=== PATIENT | female | born 1950 | race Two or more races ===

== ENCOUNTER 2024-03-02 02:15 | Inpatient (IN) | payer OTHER ==
[~2024-03-02] VITALS: Ht 157.5 cm; Wt 80.0 kg
--- NOTE | 2024-03-02 03:25 | ED.PDOC ---
History of Present Illness HPI Comments 73 year old female brought in by EMS presents to the ED with a chief complaint of generalized weakness onset yesterday. Per EMS, patient is normally on 1L of O2 at home, daughter changed it to 3L and O2 sat was 91%. Upon EMS arrival O2 sat was 97%, in route to ED O2 sat was 91% and upon ED arrival she was placed on 4L and current O2 sat is 98%. Patient had also been experiencing shortness of breath and cough for the past few days. No other symptoms or modifying factors present at this time. 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 Family History Family History: Unknown Social History Smoker: Non-Smoker Alcohol: Denies ETOH Use Drugs: Denies Drug Use Lives In: Home Constitutional: reports: weakness; denies: chills, diaphoresis, fatigue, fever, malaise, sweats, others EENTM: denies: blurred vision, double vision, ear bleeding, ear discharge, ear drainage, ear pain, ear ringing, eye pain, eye redness, hearing loss, mouth pain, mouth swelling, nasal discharge, nose bleeding, nose congestion, nose pain, photophobia, tearing, throat pain, throat swelling, voice changes, others Respiratory: reports: cough, shortness of breath; denies: hemoptysis, orthopnea, SOB at rest, SOB with excertion, stridor, wheezing, others Cardiovascular: denies: chest pain, dizzy spells, diaphoresis, Dyspnea on exertion, edema, irregular heart beat, left arm pain, lightheadedness, palpitations, PND, syncope, others Gastrointestinal: denies: abdomen distended, abdominal pain, blood streaked bowels, constipated, diarrhea, dysphagia, difficulty swallowing, hematemesis, melena, nausea, poor appetite, poor fluid intake, rectal bleeding, rectal pain, vomiting, others Genitourinary: denies: abnormal vagina bleeding, burning, dyspareunia, dysuria, flank pain, frequency, hematuria, incontinence, pain, , vagina discharge, urgency, others Neurological: reports: weakness; denies: dizziness, fainting, headache, left sided numbness, left sided weakness, numbness, paresthesia, pre-existing deficit, right sided numbness, right sided weakness, seizure, speech problems, tingling, tremors, others Musculoskeletal: denies: back pain, gout, joint pain, joint swelling, muscle pain, muscle stiffness, neck pain, others Integumetry: denies: bruises, change in color, change in hair/nails, dryness, laceration, lesions, lumps, rash, wounds, others Allergic/Immunocompromised: denies: Difficulty Healing, Frequent Infections, Hives, Itching, others Hematologic/Lymphatic: denies: anemia, blood clots, easy bleeding, easy bruising, swollen glands, others Endocrine: denies: excessive hunger, excessive sweating, excessive thirst, excessive urination, flushing, intolerance to cold, intolerance to heat, unexplained weight gain, unexplained weight loss, others Psychiatric: denies: anxiety, bipolar disorder, depression, hopeless, panic disorder, schizophrenia, sleepless, suicidal, others All Other Systems: Reviewed and Negative Physical Exam General Appearance: Moderate Distress, Other (chroniclly ill appearing) HEENT: Pharynx Normal, TMs Normal, Other (dry mucous membranes) Neck: Full Range of Motion, Non-Tender, Normal, Normal Inspection Respiratory: Chest Non-Tender, Lungs Clear, No Accessory Muscle Use, No Re spiratory Distress, Other (coarse breath sounds) Cardiovascular: No Edema, No JVD, No Murmur, No Gallop, Normal Peripheral Pulses, Regular Rate/Rhythm Breast Exam: Deferred Gastrointestinal: No Organomegaly, Non Tender, No Pulsatile Mass, Normal Bowel Sounds, Soft Genitalia: Deferred Pelvic: Deferred Rectal: Deferred Extremities: No calf tenderness, Normal capillary refill, Normal inspection, Normal range of motion, Non-tender, No pedal edema Musculoskeletal : Apperance: Normal Neurologic: Alert, insurance counselor II-XII nml as Tested, No Motor Deficits, Normal Affect, Normal Mood, No Sensory Deficits Cerebellar Function: Normal Reflexes: Normal Skin: Dry, Normal Color, Warm Lymphatic: No Adenopathy Was a procedure done? Was a procedure done?: No Differential Dx Considerations may include: Worsening malignancy, pneumonia, electrolyte abnormalities, viral syndrome, dehydration X-Ray, Labs, Meds, VS Vital Signs Date Time Temp Pulse Resp B/P (MAP) Pulse Ox O2 Delivery O2 Flow Rate FiO2 03/02/24 04:07 98.0 98.0 03/02/24 03:30 96.5 95 19 128/68 (88) 99 96.5 03/02/24 02:15 98.3 104 22 166/99 (121) 93 Lab Test 03/02/24 04:25 03/02/24 03:17 Range/Units Lactic Acid Level 1.4 0.4-2.0 mmol/L Troponin I High Sensitivity 18 16 </=34 ng/L White Blood Count 23.6 H 4.4-10.8 10^3/uL Red Blood Count 4.45 4.0-5.20 10^6/uL Hemoglobin 14.4 12.2-16.2 g/dL Hematocrit 42.3 36.0-46.0 % Mean Corpuscular Volume 95.1 80.0-100.0 fL Mean Corpuscular Hemoglobin 32.4 H 28.0-32.0 pg Mean Corpuscular Hemoglobin Concent 34.0 32.0-36.0 g/dL Red Cell Distribution Width 14.5 H 11.8-14.3 % Platelet Count 160 140-450 10^3/uL Mean Platelet Volume 7.3 6.9-10.8 fL Neutrophils (%) (Auto) 94.0 H 37.0-80.0 % Lymphocytes (%) (Auto) 2.5 L 10.0-50.0 % Monocytes (%) (Auto) 3.5 0.0-12.0 % Eosinophils (%) (Auto) 0.0 0.0-7.0 % Basophils (%) (Auto) 0.0 0.0-2.0 % Neutrophils # (Auto) 22.2 H 1.6-8.6 10 ^3/uL Lymphocytes # (Auto) 0.6 0.4-5.4 10 ^3/uL Monocytes # (Auto) 0.8 0-1.3 10 ^3/uL Eosinophils # (Auto) 0 0-0.8 10 ^3/uL Basophils # (Auto) 0 0-0.2 10 ^3/uL Nucleated Red Blood Cells 0.1 % Sodium Level 120 L 136-145 mmol/L Potassium Level 3.3 L 3.5-5.1 mmol/L Chloride Level 82 L 98-107 mmol/L Carbon Dioxide Level 33 H 20-31 mmol/L Anion Gap 5 5-15 Blood Urea Nitrogen 11 9-23 mg/dL Creatinine 0.54 L 0.550-1.02 mg/dL Glomerular Filtration Rate Calc 97 >90 mL/min BUN/Creatinine Ratio 20.4 H 10.0-20.0 Serum Glucose 142 H 74-106 mg/dL Calcium Level 9.9 8.7-10.4 mg/dL B-Type Natriuretic Peptide 239.98 0-100 pg/mL Current Medications Medications (Trade) Dose Ordered Sig/Ynes Route Start Time Stop Time Status Last Admin Cefepime HCl 50 ml @ 12.5 mls/hr ONCE ONCE IV 03/02/24 04:00 03/02/24 07:59 03/02/24 04:30 Azithromycin 250 ml @ 125 mls/hr ONCE ONCE IV 03/02/24 04:30 03/02/24 06:29 03/02/24 04:52 [place] [id number] Ph: [phone] DIAGNOSTIC IMAGING Diagnostic Imaging Report : [id number] Signed PATIENT: JEAN FRAZIERACCT: [id number] UNIT: [id number] : 1950 LOC: ER ROOM / BED: / AGE / SEX: 73 / F ADM STATUS: REG ER SERVICE 7 ORDERING PHYSICIAN: AMA LEONARD MD PROCEDURE(s): CXRP - CHEST PORTABLE REASON: weakness ORDER NUMBER(s): [id number], ACCESSION NUMBER(s): [id number] CHEST RADIOGRAPH Indication: weakness Technique: Single frontal view of the chest was obtained COMPARISON: None FINDINGS: Lines and Tubes: None Lungs: Multifocal airspace disease. Pleura: Possible small left pleural effusion. No pneumothorax. Cardiomediastinal contours: Unremarkable Bones: Unremarkable IMPRESSION: Findings are suggestive of pulmonary edema ATED BY: PALMER GREER MD DICTATED DATE/TIME: 03/02/24449 SIGNED BY: PALMER GREER MD SIGNED DATE/TIME: 01/23/25 0450 CC: Time of 1ST Reevaluation: 03:48 Reevaluation 1ST: Unchanged Patient Education/Counseling: Diagnosis, Treatment, Prognosis Family Education/Counseling: No Family Present Additional Information The following tests were ordered, and results were reviewed by me: CBC, BMP, BNP, TROP -x3, UA, XY CHEST Additional Information was gathered from interviewing the following independent historians: EMS I reviewed and agreed with the following test results read by other providers: XY CHEST I discussed treatment and results with medical personnel and patient Departure 1 Departure Time of Disposition: 05:30 (Patient with a worsening shortness of breath concerning for possible pneumonia. Also possible also possible worsening malignancy. Patient is hyponatremic empirically covering patient with antibiotics giving her fluids. We will admit patient for further workup) Impression: Primary Impression: Pneumonia Qualified Codes: J18.9 - Pneumonia, unspecified organism Additional Impressions: Hyponatremia Lung cancer Qualified Codes: C34.90 - Malignant neoplasm of unspecified part of unspecified bronchus or lung Generalized weakness Disposition: ADMITTED INPATIENT Admit to: [facility] Condition: Guarded Critical Care Note Critical Care Time?: Yes Critical care comment: Acute shortness of breath Authorized and Performed by: Ama Leonard MD Total critical care time: Approximately 38 minutes Due to a high probability of clinically significant, life threatening deterioration, the patient required my highest level of preparedness to intervene emergently and I personally spent this critical care time directly and personally managing the patient. This critical care time included obtaining a history; examining the patient; pulse oximetry; ordering and review of studies; arranging urgent treatment with development of a management plan; evaluation of patient's response to treatment; frequent reassessment; and, discussions with other providers. This critical care time was performed to assess and manage the high probability of imminent, life-threatening deterioration that could result in multi-organ failure. It was exclusive of separately billable procedures and treating other patients and teaching time. Please see my other sections and the rest of the note for further information on patient assessment and treatment. Stability Stability form required: No Heart Score Heart Score: Heart Score Response (Comments) Value History N/A 0 EKG N/A 0 Age N/A 0 Risk Factors N/A 0 Troponin N/A 0 Total 0 I personally scribed for AMA LEONARD MD ([email or web address]) on 03/02/24 at 03:25. Electronically submitted by Yulissa Ndiaye ([email or web address]). I personally scribed for AMA LEONARD MD ([email or web address]) on 03/02/24 at 03:26. Electronically submitted by Yulissa Ndiaye ([email or web address]). I personally scribed for AMA LEONARD MD ([email or web address]) on 03/02/24 at 05:05. Electronically submitted by Yulissa Ndiaye ([email or web address]). AMA LEONARD MD Mar 02, 2024 03:25
[2024-03-02 03:39] LABS: Basophils # (auto) 0 10 ^3/uL (0-0.2); Eosinophils # (auto) 0 10 ^3/uL (0-0.8); Hematocrit 42.3 % (36.0-46.0); Hemoglobin 14.4 g/dL (12.2-16.2); Lymphocytes # (auto) 0.6 10 ^3/uL (0.4-5.4); Lymphocytes % (auto) 2.5 % (10.0-50.0); Mean Corpuscular Hemoglobin 32.4 pg (28.0-32.0); Mean Corpuscular Volume 95.1 fL (80.0-100.0); Monocytes # (auto) 0.8 10 ^3/uL (0-1.3); Monocytes % (auto) 3.5 % (0.0-12.0); Neutrophils # (auto) 22.2 10 ^3/uL (1.6-8.6); Nucleated Red Blood Cells % 0.1 %; Platelet Count (auto) 160 10^3/uL (140-450); Red Blood Cells 4.45 10^6/uL (4.0-5.20); Red Cell Distribution Width 14.5 % (11.8-14.3); White Blood Cell 23.6 10^3/uL (4.4-10.8)
[2024-03-02 03:56] LABS: Anion Gap 5 (5-15)
[2024-03-02 03:57] LABS: Calcium 9.9 mg/dL (8.7-10.4)
[2024-03-02 04:00] VITALS: PULSE 90; RESP 18; O2SAT 96
[2024-03-02] MEDS ORDERED: AZITHROMYCIN 250 MG TAB PO ONE (04:00)
[2024-03-02] MEDS ORDERED: VANCOMYCIN 1GM/250ML KIT 200 ML IV ONE (04:00)
[2024-03-02 04:02] LABS: BUN/Creatinine Ratio 20.4 (10.0-20.0); Blood Urea Nitrogen 11 mg/dL (9-23)
[2024-03-02 04:06] LABS: Carbon Dioxide 33 mmol/L (20-31); Chloride 82 mmol/L (98-107); Glucose 142 mg/dL (74-106); Potassium 3.3 mmol/L (3.5-5.1); Sodium 120 mmol/L (136-145)
[2024-03-02] MEDS: CEFEPIME 2GM/50ML NS 50 ML IV ONE (04:30)
[2024-03-02] MEDS: AZITHROMYCIN 500MG/ 250ML 250 ML IV ONE (04:52)
--- NOTE | 2024-03-02 04:54 | DVH ---
CHEST RADIOGRAPH Indication: weakness Technique: Single frontal view of the chest was obtained COMPARISON: None FINDINGS: Lines and Tubes: None Lungs: Multifocal airspace disease. Pleura: Possible small left pleural effusion. No pneumothorax. Cardiomediastinal contours: Unremarkable Bones: Unremarkable IMPRESSION: Findings are suggestive of pulmonary edema
[2024-03-02] MEDS: SODIUM CHLORIDE 0.9% 1,000 ML IV ONE (05:30)
[2024-03-02] MEDS: ONDANSETRON HCL 4 MG/2 ML VIAL IV ONE (06:12)
[2024-03-02] MEDS: MORPHINE SULFATE 4 MG/ML SYR/VIAL IV ONE (06:13)
[2024-03-02 07:30] VITALS: PULSE 90; RESP 16; O2SAT 93
[2024-03-02] MEDS: VANCOMYCIN 1GM/250ML KIT 250 ML IV ONE (11:15)
[2024-03-02] MEDS ORDERED: NITROGLYCERIN 0.4 MG SL TAB SL PRN (11:30)
[2024-03-02] MEDS ORDERED: HYDROcodone-ACET 5/325MG TAB PO PRN (11:30)
[2024-03-02] MEDS ORDERED: MORPHINE SULFATE INJ 2 MG/ml SYRG IV PRN (11:30)
[2024-03-02] MEDS ORDERED: ACETAMINOPHEN 325 MG TAB PO PRN (11:30)
[2024-03-02] MEDS: SODIUM CHLORIDE 0.9% 1,000 ML IV SCH (11:50)
[2024-03-02] MEDS: PIPERACILLIN-TAZOB 3.375GM 100 ML IV ONE (12:10)
[2024-03-02 12:51] LABS: COVID19 ANTIGEN SOFIA FIA NEGATIVE (NEGATIVE)
[2024-03-02 12:52] LABS: Rapid Influenza A Negative (Negative); Rapid Influenza B Negative (Negative)
[2024-03-02 12:56] LABS: Urine Bacteria FEW /hpf (None Seen); Urine Blood 1+ /uL (Negative); Urine Clarity Turbid (Clear); Urine Color Yellow (Yellow); Urine Protein, UAD TRACE (Negative); Urine Specific Gravity 1.014 (1.001-1.035); Urine Squamous Epithelial Cell FEW /hpf (<5); Urine Urobilinogen 3 mg/dL (Negative); Urine WBC 6 /HPF (0-5)
[2024-03-02 13:04] LABS: Sodium Urine < 10 mmol/L (40-220)
[2024-03-02 13:10] LABS: Creatinine, Urine 29.89 mg/dL (30.0-125.0)
--- NOTE | 2024-03-02 13:29 | DVHINCON2 ---
Date of service: Mar 02, [address] Israel Reason for Consultation Hyponatremia History of Present Illness Patient is a 73-year-old female with past medical history significant for Congestive heart failure, lung cancer and chronic respiratory failure on home O2 is admitted for generalized weakness shortness of breath. On admission patient found to have hyponatremia nephrology is consulted to help in the management of hyponatremia Past Medical History Lungs cancer Chronic respiratory failure Congestive heart failure Past Surgical History Patient denies Allergies: Coded Allergies: NO KNOWN ALLERGIES (Unverified , 03/02/24) Current Medications Current Medications Medications (Trade) Dose Ordered Sig/Ynes Route PRN Reason Start Time Stop Time Status Last Admin Enoxaparin Sodium (Lovenox) 40 mg DAILY SC 03/03/24 10:00 03/03/24 05:49 DC Piperacillin Sod/ Tazobactam Sod 100 ml @ 25 mls/hr Q8HR IV 03/02/24 21:00 03/03/24 05:49 DC 03/02/24 21:28 Potassium Chloride 100 ml @ 50 mls/hr Q2H IV 03/02/24 13:45 03/02/24 17:44 DC 03/02/24 16:43 Furosemide (Lasix Injection) 20 mg BIDD IV 03/02/24 13:45 03/03/24 05:49 DC 03/02/24 18:06 Review of Systems All 12 item review of systems reviewed with the patient nonsignificant except wh at is mentioned in the history of present illness H&P Exam Vital Signs/I&O Vital Sign Date Time Temp Pulse Resp B/P (MAP) Pulse Ox O2 Delivery O2 Flow Rate FiO2 03/03/24 01:00 98.6 65 16 72/40 (51) 77 98.6 03/02/24 20:00 Oxymizer 10 N/A Intake and Output 03/02/24 03/03/24 19:00 07:00 Output Total 50 ml Balance -50 ml Output Urine Total 50 ml Physical Exam Moderate respiratory distress Lungs decreased breath sounds left base Cardiac exam regular rate and rhythm GI soft nontender normal Extremity 1+ edema Neuro nonfocal Labs/Diagnostic Data Labs/Diagnostic Data Laboratory Tests Test 03/02/24 12:37 03/02/24 12:12 03/02/24 12:10 03/02/24 06:18 Range/Units Urine Color Yellow Yellow Urine Clarity Turbid H Clear Urine pH 6.0 5.0-9.0 Urine Specific [place] 1.014 1.001-1.035 Urine Protein Trace H Negative Urine Ketones Trace Negative Urine Blood 1+ H Negative /uL Urine Nitrite Negative Negative Urine Bilirubin Negative Negative Urine Urobilinogen 3 H Negative mg/dL Urine Leukocyte Esterase Trace Negative /uL Urine RBC 9 0 - 4 /hpf Urine Microscopic WBC 6 H 0-5 /HPF Urine Squamous Epithelial Cells Few <5 /hpf Urine Bacteria Few H None Seen /hpf Urine Osmolality 336 mOsm/kg Urine Creatinine 28.01 L 30.0-125.0 mg/dL Urine Protein/Creatinine Ratio 2.03 Urine Sodium < 10 L 40-220 mmol/L Urine Glucose Normal Normal mg/dL Urine Total Protein 57.0 H 1-14 mg/dL Serum Osmolality 280 278-298 mOsm/kg Influenza Type A Antigen Negative Negative Influenza Type B Antigen Negative Negative SARS-CoV-2 Antigen (Rapid) Negative NEGATIVE Troponin I High Sensitivity 18 </=34 ng/L Test 03/02/24 04:25 03/02/24 03:17 Range/Units Lactic Acid Level 1.4 0.4-2.0 mmol/L Troponin I High Sensitivity 18 16 </=34 ng/L White Blood Count 23.6 H 4.4-10.8 10^3/uL Red Blood Count 4.45 4.0-5.20 10^6/uL Hemoglobin 14.4 12.2-16.2 g/dL Hematocrit 42.3 36.0-46.0 % Mean Corpuscular Volume 95.1 80.0-100.0 fL Mean Corpuscular Hemoglobin 32.4 H 28.0-32.0 pg Mean Corpuscular Hemoglobin Concent 34.0 32.0-36.0 g/dL Red Cell Distribution Width 14.5 H 11.8-14.3 % Platelet Count 160 140-450 10^3/uL Mean Platelet Volume 7.3 6.9-10.8 fL Neutrophils (%) (Auto) 94.0 H 37.0-80.0 % Lymphocytes (%) (Auto) 2.5 L 10.0-50.0 % Monocytes (%) (Auto) 3.5 0.0-12.0 % Eosinophils (%) (Auto) 0.0 0.0-7.0 % Basophils (%) (Auto) 0.0 0.0-2.0 % Neutrophils # (Auto) 22.2 H 1.6-8.6 10 ^3/uL Lymphocytes # (Auto) 0.6 0.4-5.4 10 ^3/uL Monocytes # (Auto) 0.8 0-1.3 10 ^3/uL Eosinophils # (Auto) 0 0-0.8 10 ^3/uL Basophils # (Auto) 0 0-0.2 10 ^3/uL Nucleated Red Blood Cells 0.1 % Sodium Level 120 L 136-145 mmol/L Potassium Level 3.3 L 3.5-5.1 mmol/L Chloride Level 82 L 98-107 mmol/L Carbon Dioxide Level 33 H 20-31 mmol/L Anion Gap 5 5-15 Blood Urea Nitrogen 11 9-23 mg/dL Creatinine 0.54 L 0.550-1.02 mg/dL Glomerular Filtration Rate Calc 97 >90 mL/min BUN/Creatinine Ratio 20.4 H 10.0-20.0 Serum Glucose 142 H 74-106 mg/dL Calcium Level 9.9 8.7-10.4 mg/dL Phosphorus Level 4.6 2.4-5.1 mg/dL Magnesium Level 1.5 L 1.6-2.6 mg/dL B-Type Natriuretic Peptide 239.98 0-100 pg/mL Assessment Hyponatremia secondary to excess H2O Acute on chronic hypoxic respiratory failure Congestive heart failure exacerbation Lungs cancer Hypokalemia Normal kidney function Recommendations Closely monitor fluid and electrolytes Avoid nephrotoxic medications Starr catheter Strict I&Os Fluid restrictions KCL replacement Furosemide 20 mg IV b.i.d. Check urine electrolytes and urine osmolarity Check ABG Avoid rapid correction of serum sodium We will continue to follow Patient seen and examined by myself in the ER. I discussed my plan of care with the patient and primary nurse at the bedside I would like to thank Dr. israel for the consult, will follow up Plan discussed with: Patient TAINA VILLATORO MD Mar 02, 2024 13:29
[2024-03-02] MEDS: POTASSIUM EFFERVESENT TAB 25 MEQ PO ONE (13:45)
[2024-03-02 13:47] LABS: Magnesium 1.5 mg/dL (1.6-2.6); Phosphorus 4.6 mg/dL (2.4-5.1)
--- NOTE | 2024-03-02 13:57 | DVHSR ---
APPROVED REPORT EXAM: Two-dimensional and M-mode echocardiogram with Doppler and color Doppler. Blood Pressure: 141/65 mmHg INDICATION Acute respiratory failure, rule out CHF RISK FACTORS Height: 62, Weight: 130 DIMENSIONS LVDd3.6 (3.8-5.7cm)LA (2D)3.4 (1.9-4.0cm)Aortic Root3.5 (2.0-3.7cm) LVDs2.5 (2.5-4.0cm)LA (MM) (1.9-4.0cm)Aortic Cusp Exc1.7 (1.5-2.0cm) EF (%) 60.0 (55-70%)Rt. Atrium3.6 (1.9-4.0cm)Asc. Aorta cm Mitral Valve MitralMitral Stenosis E wave0.61m/sMV Mean GR.2mmHg A wave1.01m/sMV Peak GR.5mmHg E/A ratio0.62D MVAcm2 DECEL [id number] 1/2 [id number] IVRTmsDop MVA3.57cm2 Aortic Valve Aortic ValveAortic Stenosis V11.25m/Niurka Mean GR.5mmHg V21.61m/Niurka Peak GR.10mmHg LVOT Diameter1.8 (1.8-2.4cm)Doppler AVA1.97cm2 Tricuspid Valve TR Velocity3.35m/s [id number] LEFT VENTRICLE The left ventricle is of normal size. There is mild left ventricular hypertrophy most prominent in t he septum. Ejection fraction is normal and is estimated at 65%. There is no regional wall motion ab normalities. Diastolic function is indeterminate. E to E prime ratio is in the indeterminate range. RIGHT VENTRICLE The right ventricle is of normal size. Systolic function is normal. ATRIA Both atria are of normal size. Intra-atrial septum is not well visualized. MITRAL VALVE There is moderate mitral annular calcification. No significant regurgitation. Mean mitral valve gra dient is 2 mmHg at a heart rate of 90 beats per minute. PULMONIC VALVE Likely normal. TRICUSPID VALVE Normal structure and function. There is mild tricuspid regurgitation. PA systolic pressure is estim ated at 60 mm Hg. AORTIC VALVE Trileaflet in morphology. Leaflets are mildly calcified. No significant stenosis or regurgitation. GREAT VESSELS The aortic root is of normal size. PERICARDIAL EFFUSION No significant pericardial effusion. There is large left-sided pleural effusion. IVC is of normal s ize and collapses normally with inspiration. Other Information Technically limited study due to patient sleeping Conclusion The study is technically limited. Normal left ventricular size and systolic function. Ejection fraction is estimated at 65%. Normal right ventricular size and systolic function. No hemodynamically significant valvular disease. PA systolic pressure is estimated at 60 mm Hg. Large left-sided pleural effusion.
--- NOTE | 2024-03-02 14:06 | DVHHP2 ---
Admitting Diagnosis: Acute Respiratory Failure History of Present Illness HPI Patient is a 73-year-old female with past medical history of metastatic breast cancer normal history of alcohol dependence who was brought by family due to altered mental status over the past day. Patient apparently recently had a PET scan done and noticed her decline in mentation. Patient is accompanied by her sons at bedside who provide most of the history. They state that the patient has had a poor appetite and tends to drink significantly. It is unclear if she is really compliant with her chemotherapy medications. At bedside, patient is noted to be lethargic after receiving morphine. She arrived to the ER noted to be hypoxic requiring 6 L Oxymizer. CBC was notable for leukocytosis of 24. BMP was notable for hyponatremia to 120 with hypochloremia and hypokalemia. Flu and COVID is noted to be negative. Chest x-ray was done which suggested pulmonary edema. In discussion with family, it is noted that the patient sees Dr. Lopez for her breast cancer. They have previously discussed the concept of hospice for the patient but the patient has refused previously. Patient was admitted for further evaluation. Past Medical History Hemotology/Oncology: Cancer Review of Systems Comments Unable to obtain due to mental status H&P Exam Vital Signs Vital Signs Date Time Temp Pulse Resp B/P (MAP) Pulse Ox O2 Delivery O2 Flow Rate FiO2 03/02/24 12:00 82 03/02/24 12:00 97.3 16 124/63 (83) 89 97.3 03/02/24 07:30 Oxymizer 6 N/A General Appeara: Thin Pulmonary/Respiratory: Crackles Cardiovascular/Chest: Regular rate Labs/Xrays Labs Test 03/02/24 12:37 03/02/24 12:12 03/02/24 12:10 03/02/24 06:18 Range/Units Urine Color Yellow Yellow Urine Clarity Turbid H Clear Urine pH 6.0 5.0-9.0 Urine Specific [place] 1.014 1.001-1.035 Urine Protein Trace H Negative Urine Ketones Trace Negative Urine Blood 1+ H Negative /uL Urine Nitrite Negative Negative Urine Bilirubin Negative Negative Urine Urobilinogen 3 H Negative mg/dL Urine Leukocyte Esterase Trace Negative /uL Urine RBC 9 0 - 4 /hpf Urine Microscopic WBC 6 H 0-5 /HPF Urine Squamous Epithelial Cells Few <5 /hpf Urine Bacteria Few H None Seen /hpf Urine Osmolality 349 mOsm/kg Urine Creatinine 29.89 L 30.0-125.0 mg/dL Urine Sodium < 10 L 40-220 mmol/L Urine Glucose Normal Normal mg/dL Serum Osmolality 280 278-298 mOsm/kg Influenza Type A Antigen Negative Negative Influenza Type B Antigen Negative Negative SARS-CoV-2 Antigen (Rapid) Negative NEGATIVE Troponin I High Sensitivity 18 </=34 ng/L Test 03/02/24 04:25 03/02/24 03:17 Range/Units Lactic Acid Level 1.4 0.4-2.0 mmol/L White Blood Count 23.6 H 4.4-10.8 10^3/uL Red Blood Count 4.45 4.0-5.20 10^6/uL Hemoglobin 14.4 12.2-16.2 g/dL Hematocrit 42.3 36.0-46.0 % Mean Corpuscular Volume 95.1 80.0-100.0 fL Mean Corpuscular Hemoglobin 32.4 H 28.0-32.0 pg Mean Corpuscular Hemoglobin Concent 34.0 32.0-36.0 g/dL Red Cell Distribution Width 14.5 H 11.8-14.3 % Platelet Count 160 140-450 10^3/uL Mean Platelet Volume 7.3 6.9-10.8 fL Neutrophils (%) (Auto) 94.0 H 37.0-80.0 % Lymphocytes (%) (Auto) 2.5 L 10.0-50.0 % Monocytes (%) (Auto) 3.5 0.0-12.0 % Eosinophils (%) (Auto) 0.0 0.0-7.0 % Basophils (%) (Auto) 0.0 0.0-2.0 % Neutrophils # (Auto) 22.2 H 1.6-8.6 10 ^3/uL Lymphocytes # (Auto) 0.6 0.4-5.4 10 ^3/uL Monocytes # (Auto) 0.8 0-1.3 10 ^3/uL Eosinophils # (Auto) 0 0-0.8 10 ^3/uL Basophils # (Auto) 0 0-0.2 10 ^3/uL Nucleated Red Blood Cells 0.1 % Sodium Level 120 L 136-145 mmol/L Potassium Level 3.3 L 3.5-5.1 mmol/L Chloride Level 82 L 98-107 mmol/L Carbon Dioxide Level 33 H 20-31 mmol/L Anion Gap 5 5-15 Blood Urea Nitrogen 11 9-23 mg/dL Creatinine 0.54 L 0.550-1.02 mg/dL Glomerular Filtration Rate Calc 97 >90 mL/min BUN/Creatinine Ratio 20.4 H 10.0-20.0 Serum Glucose 142 H 74-106 mg/dL Calcium Level 9.9 8.7-10.4 mg/dL Magnesium Level 1.5 L 1.6-2.6 mg/dL B-Type Natriuretic Peptide 239.98 0-100 pg/mL Assessment/Plan Primary Diagnosis 1. Acute Respiratory Failure 2. Hyponatremia 3. Metastatic Breast Cancer 4. Metabolic Encephalopathy -Admit to telemetry. -Pulmonary consulted for acute respiratory failure. Goal pulse ox greater than 92%. -Infectious disease, Dr. Ospina consulted for concern of underlying sepsis given leukocytosis. -Blood cultures pending. -Influenza and COVID pending -Vancomycin and Zosyn -Nephrology consulted for hyponatremia. Plan for Lasix 20 mg IV twice daily -Cardiology consulted for concern of underlying CHF. TTE pending. -Avoid any additional morphine given change in mental status. -Strict I's and O's. -DNR. No intubation if patient decompensates. Discussed plan with both sons at bedside, with Michel tabares POA. [phone]. Plan discussed with: DREW Cr DO Mar 02, 2024 14:06
[2024-03-02] MEDS: FUROSEMIDE 20 MG/2 ML VIAL IV SCH (14:41)
[2024-03-02] MEDS: POTASSIUM CHL 20MEQ/100ML 100 ML IV SCH (14:41)
[2024-03-02 18:01] LABS: Creatinine, Urine 28.01 mg/dL (30.0-125.0); Urine Protein/Creatinine Ratio 2.03
[2024-03-02] MEDS: MORPHINE SULFATE INJ 2 MG/ml SYRG IV PRN (18:10)
[2024-03-02 18:54] VITALS: BP 119/65; PULSE 64; RESP 18; TEMP 98.7; O2SAT 97
[2024-03-02 20:00] VITALS: PULSE 88; O2SAT 96
[2024-03-02 21:00] VITALS: BP 111/66; PULSE 90; RESP 16; TEMP 98.8; O2SAT 92
[2024-03-02] MEDS: PIPERACILLIN-TAZOB 3.375GM 100 ML IV SCH (21:28)
[2024-03-03 01:00] VITALS: BP 72/40; PULSE 65; RESP 16; TEMP 98.6; O2SAT 77
[2024-03-03] MEDS ORDERED: ENOXAPARIN SOD 40 MG/0.4 ML SYRINGE SC SCH (10:00)
--- NOTE | 2024-03-03 12:33 | DVHDS2 ---
Discharge Summary Date of Admission Mar 02, 2024 at 11:27 Date of Discharge: Mar 03, 2024 Labs/Diagnostic Data: Laboratory Results Test 03/02/24 12:37 03/02/24 12:12 03/02/24 12:10 03/02/24 06:18 Urine Color Yellow (Yellow) Urine Clarity Turbid (Clear) Urine pH 6.0 (5.0-9.0) Urine Specific [place] 1.014 (1.001-1.035) Urine Protein Trace (Negative) Urine Ketones Trace (Negative) Urine Blood 1+ /uL (Negative) Urine Nitrite Negative (Negative) Urine Bilirubin Negative (Negative) Urine Urobilinogen 3 mg/dL (Negative) Urine Leukocyte Esterase Trace /uL (Negative) Urine RBC 9 /hpf (0 - 4) Urine Microscopic WBC 6 /HPF (0-5) Urine Squamous Epithelial Cells Few /hpf (<5) Urine Bacteria Few /hpf (None Seen) Urine Osmolality 336 mOsm/kg Urine Creatinine 28.01 mg/dL (30.0-125.0) Urine Protein/Creatinine Ratio 2.03 Urine Sodium < 10 mmol/L (40-220) Urine Glucose Normal mg/dL (Normal) Urine Total Protein 57.0 mg/dL (1-14) Serum Osmolality 280 mOsm/kg (278-298) Influenza Type A Antigen Negative (Negative) Influenza Type B Antigen Negative (Negative) SARS-CoV-2 Antigen (Rapid) Negative (NEGATIVE) Troponin I High Sensitivity 18 ng/L (</=34) Test 03/02/24 04:25 03/02/24 03:17 Lactic Acid Level 1.4 mmol/L (0.4-2.0) White Blood Count 23.6 10^3/uL (4.4-10.8) Red Blood Count 4.45 10^6/uL (4.0-5.20) Hemoglobin 14.4 g/dL (12.2-16.2) Hematocrit 42.3 % (36.0-46.0) Mean Corpuscular Volume 95.1 fL (80.0-100.0) Mean Corpuscular Hemoglobin 32.4 pg (28.0-32.0) Mean Corpuscular Hemoglobin Concent 34.0 g/dL (32.0-36.0) Red Cell Distribution Width 14.5 % (11.8-14.3) Platelet Count 160 10^3/uL (140-450) Mean Platelet Volume 7.3 fL (6.9-10.8) Neutrophils (%) (Auto) 94.0 % (37.0-80.0) Lymphocytes (%) (Auto) 2.5 % (10.0-50.0) Monocytes (%) (Auto) 3.5 % (0.0-12.0) Eosinophils (%) (Auto) 0.0 % (0.0-7.0) Basophils (%) (Auto) 0.0 % (0.0-2.0) Neutrophils # (Auto) 22.2 10 ^3/uL (1.6-8.6) Lymphocytes # (Auto) 0.6 10 ^3/uL (0.4-5.4) Monocytes # (Auto) 0.8 10 ^3/uL (0-1.3) Eosinophils # (Auto) 0 10 ^3/uL (0-0.8) Basophils # (Auto) 0 10 ^3/uL (0-0.2) Nucleated Red Blood Cells 0.1 % Sodium Level 120 mmol/L (136-145) Potassium Level 3.3 mmol/L (3.5-5.1) Chloride Level 82 mmol/L (98-107) Carbon Dioxide Level 33 mmol/L (20-31) Anion Gap 5 (5-15) Blood Urea Nitrogen 11 mg/dL (9-23) Creatinine 0.54 mg/dL (0.550-1.02) Glomerular Filtration Rate Calc 97 mL/min (>90) BUN/Creatinine Ratio 20.4 (10.0-20.0) Serum Glucose 142 mg/dL (74-106) Calcium Level 9.9 mg/dL (8.7-10.4) Phosphorus Level 4.6 mg/dL (2.4-5.1) Magnesium Level 1.5 mg/dL (1.6-2.6) B-Type Natriuretic Peptide 239.98 pg/mL (0-100) Other Laboratory Tests 03/02/24 03:17 Brief Hx & Hospital Course: Patient is a 73-year-old female with past medical history of metastatic breast cancer normal history of alcohol dependence who was brought by family due to altered mental status over the past day. Patient apparently recently had a PET scan done and noticed her decline in mentation. Patient is accompanied by her sons at bedside who provide most of the history. They state that the patient has had a poor appetite and tends to drink significantly. It is unclear if she is really compliant with her chemotherapy medications. At bedside, patient is noted to be lethargic after receiving morphine. She arrived to the ER noted to be hypoxic requiring 6 L Oxymizer. CBC was notable for leukocytosis of 24. BMP was notable for hyponatremia to 120 with hypochloremia and hypokalemia. Flu and COVID is noted to be negative. Chest x-ray was done which suggested pulmonary edema. In discussion with family, it is noted that the patient sees Dr. Lopez for her breast cancer. They have previously discussed the concept of hospice for the patient but the patient has refused previously. Patient was admitted for further evaluation. Patient remained altered and ANO x 0 during hospitalization. She was started on broad-spectrum antibiotics. Oxygen requirement was noted to persist at 15 L simple mask. Patient was made DNR on admission and discussion with the family. Overnight, patient's oxygen requirement increased and was noted to desaturate to 77%. Patient's daughter was at bedside and BiPAP was offered to the patient but the daughter noted she just wanted to "make the patient comfortable." Patient subsequently at approximately 1:48 AM on 03/03/2024. Patient's daughter was at bedside when the change was noted. client business manager showed asystole. Patient was subsequently pronounced. Family was subsequently updated. Patient [place] [facility] [place] Condition at Discharge: Poor Final Diagnosis/Problems List Acute Respiratory Failure 2/2 Metastatic Breast Cancer Secondary Diagnosis: Hyponatremia Metabolic Encephalopathy Discharge Disposition: at Hospital Discharge Statement: "Patient was advised to return to the ER or call 911 if any headaches, dizziness, shortness of breath, chest pain, abdominal pain, bleeding, fevers, or worsening of medical condition. Patient was counseled about treatment plan, medications, possible side effects, patientverbalized understanding. All questions were answered to the best of my ability. This discharge took greater then 30 minutes in planning, reviewing documentation, counseling the patient, and discussing with other team members." ASSESSMENT ASSESSMENT Assessment DREW MERRILL DO Mar 03, 2024 12:33
== END 2024-03-03 01:45 | DRG 640 ==
LOC: EDBD 02:15 → ER 02:15 → TELE 11:27 → TELE-WESTW 18:50
PROVIDERS: ADMIT Student in an Organized Health Care Education/Training Program; ATTEND Student in an Organized Health Care Education/Training Program
DX: E87.1 Hypo-osmolality and hyponatremia (principal); G93.41 Metabolic encephalopathy; J96.00 Acute respiratory failure, unspecified whether with hypoxia or hypercapnia; Z20.822 Contact with and (suspected) exposure to COVID-19; Z66 Do not resuscitate; I50.9 Heart failure, unspecified; F10.20 Alcohol dependence, uncomplicated; Y90.9 Presence of alcohol in blood, level not specified; E87.6 Hypokalemia; E87.8 Other disorders of electrolyte and fluid balance, not elsewhere classified; Z85.118 Personal history of other malignant neoplasm of bronchus and lung; Z85.3 Personal history of malignant neoplasm of breast; Z99.81 Dependence on supplemental oxygen; J98.4 Other disorders of lung
CPT/HCPCS: 36415; 71045; 80048; 81001; 82570; 83605; 83735; 83880; 83930; 83935; 84100; 84156; 84300; 84484; 85025; 87040; 87426; 87804; 93306; 96365; 96375; 99291; G0378; J0692; J2405; J2543; J3480